=== PATIENT | male | born 1945 | race Caucasian/White ===

== ENCOUNTER 2020-02-21 08:06 | Inpatient (IN) | payer MEDICARE, BC ==
[2020-02-21 08:31] VITALS: BMI 24.4
[2020-02-21] MEDS ORDERED: hydrALAZINE 20 MG/ML VIAL SLOW IVP PRN (09:27)
[2020-02-21] MEDS ORDERED: Acetaminophen 325 MG TAB PO PRN (09:27)
[2020-02-21] MEDS ORDERED: Famotidine 20 MG TAB PO SCH (09:45)
[2020-02-21] MEDS ORDERED: Diltiazem 125 MG in Sodium Chloride 0.9% 100 ML IVPB SCH (12:30)
--- NOTE | 2020-02-21 15:17 | HP ---
PRIMARY CARE PHYSICIAN: Dr. Mark Rayo. CHIEF COMPLAINT: Palpitations. HISTORY OF PRESENT ILLNESS: Mr. Guerrero is a pleasant 74-year-old gentleman, who presented to the emergency room complaining of palpitations for the past hour and a half. The patient denies having any chest pain during this time. He denies feeling dizzy or lightheaded. The patient denies any shortness of breath. No nausea. No vomiting. He did state that he had a slight headache as a result. He says this started after he just kind of rolled over on his side. As a result, he went to the emergency room at [facility]. There, he was found to be in atrial fibrillation with rapid ventricular response. He was noted to have a heart rate of approximately 120. He was placed on a Cardizem drip and then transferred to our facility for further evaluation. When asked if anything like this has ever happened to him before, he said it did about 35 years ago. At that time, the palpitations lasted for about an hour, but by the time he reached the emergency room, it had gone away. He has never seen a cutter tender and never had a cardiac workup in the past and his only other symptom is he did have cold-like symptoms for approximately 5 weeks, but this has since resolved. The patient denies any leg pain or leg swelling. He says that he is fairly active and can walk up to 2 miles without any kind of difficulty. REVIEW OF SYSTEMS: All systems were reviewed and are negative except for that mentioned in the history of present illness. PAST MEDICAL HISTORY: Significant for hypertension, however, he says that he has been off medications for several years. He was told that his blood pressure had normalized in the last 7 years, history of intracranial hemorrhage as well as a polyp was removed. PAST SURGICAL HISTORY: He has had an inguinal hernia repair and a right knee surgery. SOCIAL HISTORY: He is . He has 3 children, 2 living. He is a nonsmoker and nondrinker. His daughter, Shelli, who is an RN here at the hospital would be his surrogate decision maker. He would like to be a full code. FAMILY HISTORY: Significant for father, who had colon cancer; and a mother, who had heart disease. ALLERGIES: NO KNOWN DRUG ALLERGIES. CURRENT MEDICATIONS: He is not on any prescription medications. He takes a dietary supplement as well as , multivitamins, vitamin D, aspirin 81 mg a day, and Citrucel. PHYSICAL EXAMINATION: GENERAL: He is alert and oriented. He appears to be in no acute distress. He is well developed and well nourished. VITAL SIGNS: Blood pressure 138/64, heart rate 94, respiratory rate of 16. His heart rate was ranging at 120 on admission, currently it is around in the high 80s. HEENT: Pupils are equal, round, and reactive. Extraocular muscles are intact. His sclerae are anicteric. Throat; no erythema, no exudates. NECK: No adenopathy. No bruits. LUNGS: Clear to auscultation. There is no wheezing, no rales, no rhonchi. CARDIOVASCULAR: His heart rate . He does not have any murmurs. There are no clicks, no rubs. ABDOMEN: Soft. It is nontender, nondistended. Positive for bowel sounds. No rebound. No guarding. EXTREMITIES: There is no clubbing or cyanosis. No edema. No calf tenderness. No joint effusions. NEUROLOGIC: Cranial nerves 2 through 12 are intact. His muscle strength is 5/5 in both his upper and lower extremities. SKIN AND INTEGUMENT: No skin changes. No rash. LABORATORY AND DIAGNOSTIC DATA: Lab results; he had lab work done at the ER at the other hospital, in which the sodium was 146, potassium 4.7, chloride 107, CO2 is 27, BUN of 9, creatinine 0.7, glucose is 122. White blood cell count 9.1, hemoglobin 16.3, hematocrit is 47.4, and platelet count is 214. He had a chest x-ray, which did not show any infiltrates or effusions. An EKG demonstrated atrial fibrillation with a heart rate of 128. ASSESSMENT AND PLAN: This is a very pleasant 74-year-old gentleman, who presents to the emergency room with atrial fibrillation and rapid ventricular response. His RENAE-VASc score would be between 1 and 2 depending on whether or not he actually has hypertension or not. He says that he does not and was told by his primary care physician that he does not. For this reason, we will go ahead and place him on a full-dose aspirin until he can be seen by Cardiology. We will continue the Cardizem drip, order an echocardiogram, and trend his troponins. Continue to monitor his blood pressure, and further recommendations to follow. Job ID: [id number]
[2020-02-21] MEDS: Carvedilol 3.125 MG TAB PO SCH (17:43)
[2020-02-21] MEDS: Famotidine 20 MG TAB PO SCH (20:10)
--- NOTE | 2020-02-21 23:45 | CON ---
DATE OF CONSULTATION: PRIMARY CARE DOCTOR: Dr. Rayo. PRIMARY GI DOCTOR: Vincent Coyle MD PRIMARY EDUCATION MANAGERS: Rosalva Bateman MD REASON FOR CARDIOLOGY CONSULTATION: New onset atrial fibrillation with RVR. HISTORY OF PRESENT ILLNESS: Mr. Guerrero is a very pleasant 74-year-old male with significant history of small cavernous malformation about 10 years ago, bilateral inguinal hernia repair, and colonoscopy every 2 to 3 years for high risk of colon cancer. He exercise every day. He has not had any cardiac workup prior to this admission. This morning, around 2 o'clock, when after the patient waking up to go to bathroom, he noticed that he had a fluttering in his chest and also checking his pulses when he turned to the left side. He waited for 1 hour and rechecked the patient's pulses, which the patient feel irregularly. Due to that reason, the patient presented to the Emergency Department at [facility]. The patient was found to be in atrial fibrillation with rapid ventricular response. was started at that time and the patient was transferred to [place], [place] for further evaluation and treatment. The patient was doing later very well. However, the patient recalled the patient had 1 similar episode about 35 years ago. At that time, when the patient arrived to the Emergency Department, the patient's heart rate going back to normal rhythm. Since then, he has not have any palpitation, fluttering, dizziness, lightheadedness, chest pain, or any other cardiac complaints. The patient had a congestion for 5 weeks. He was on DayQuil and NyQuil for almost five weeks, he stopped 2 days ago. The patient denied any shortness of breath, chest tightness, dizziness, or any other complaints during the episodes. PAST MEDICAL HISTORY: The patient's medical history, small cavernous malformation in 2011. The patient had a history of hypertension, but the patient's blood pressure medication was stopped around 7 years ago. The patient have a colonoscopy every 2 to 3 years due to high risk of colon cancer. PAST SURGICAL HISTORY: 1. Bilateral inguinal hernia repair. 2. Right knee cyst removed. 3. Colonoscopy every 2 to 3 years due to high risk of colon cancer. FAMILY HISTORY: The patient's family history is the patient's father had a history of colon cancer. The patient's mother, who has heart disease. SOCIAL HISTORY: He is . He has 3 children, whom two are living. He denied EtOH, tobacco, or illicit drug abuse. He exercises almost every day. He used to run until 10 years ago, now he walk 2 miles a day without any cardiac complaints. ALLERGIES: NO KNOWN DRUG ALLERGIES. MEDICATIONS: 1. . 2. Multivitamin. 3. NyQuil. 4. DayQuil. 5. Aspirin 81 mg once a day. 6. Vitamin D. 7. Fiber. REVIEW OF SYSTEMS: A 12-point review of systems are negative unless otherwise mentioned in HPI. PHYSICAL EXAMINATION: VITAL SIGNS: Blood pressure 123/65, temperature 98.0, pulse is 70s to 100 and atrial fibrillation with Cardizem drip, O2 saturation 96% on room air, and respiratory rate is 18. GENERAL: The patient is alert and oriented x4, not in acute distress. HEENT: Head, normocephalic and atraumatic. Eyes, extraocular muscle movement intact. ENT and mouth, oral and nasal mucosa moist without lesion. NECK: Supple. Normal range of motion. No JVD. Carotid pulses are present without bruits or thrill. RESPIRATORY: Clear to auscultate bilaterally. No wheezing, rales, or rhonchi noted. CARDIOVASCULAR: Regular rate and rhythm. Normal S1 and S2. No S3 or S4. No significant murmur, hives, or thrill noted. 2+ pulses in bilateral upper and lower extremities. No edema in the lower extremities. ABDOMEN: Soft and nontender. No masses. Positive bowel sounds are present. MUSCULOSKELETAL: The patient able to move all extremities. The patient denied claudication. SKIN: Warm and dry. No lesion, rash, or erythema noted, but the patient had a bruise in bilateral hands and arms due to thin skin and he is on baby aspirin. NEUROLOGIC: The patient is alert and oriented x4. Nonfocal. PSYCHIATRIC: The patient's mood is appropriate. LABORATORY DATA: WBC 6.5, hemoglobin 14.9, hematocrit 44.3, and platelet 182. Sodium 142, potassium 4.0, BUN 9, creatinine 0.86, glucose 100, AST 15, and ALT 12. TSH 2.0874. Vitamin D is 36.8. Echocardiogram was done today with EF more than 60% to 65%, mild to moderate dilated left atrium, mild mitral valve regurgitation, and mild tricuspid valve regurgitation. ASSESSMENT AND PLAN: 1. New onset atrial fibrillation and rapid ventricular response. The patient's heart rates are well controlled. Carvedilol 3.125 mg twice a day is going to be started from today. Since the patient's [id number] score is 1, which is age, the patient's risk of stroke from atrial fibrillation is very low. If the patient is not going to convert back to normal rhythm by Sunday, possibly the patient is going to undergo cardioversion by Dr. Bateman on Sunday due to the low CHADS-VASc score is 1 and also the patient has a history of hemorrhage in the brain about 2011 when the patient was told by Dr. Velez, the patient should be very careful starting any anticoagulation. The patient is going to be on aspirin 81 mg once a day and Lovenox 40 mg once a day at this moment. 2. History of hypertension. The patient has not been on the blood pressure medication for more than seven years. The patient's blood pressure is stable. At this moment with current medication, we would like to continue to monitor. Thank you very much for Cardiology Service to participate in the care of this patient. We will follow along the patient's care team and make further recommendations as appropriate. Job ID: [id number]
[2020-02-22 03:14] LABS: #Basophils 0.1 thou/uL (0.0-0.2); #Eosinphils 0.1 thou/uL (0.0-0.7); #Lymphocytes 1.8 thou/uL (1.20-3.40); #Monocytes 0.7 thou/uL (0.11-0.59); #Neutrophils 7.5 thou/uL (1.40-6.50); %Basophils 0.6 % (0.0-1.0); %Eosinophils 0.8 % (0.0-10.0); %Lymphocytes 17.9 % (21.0-51.0); %Monocytes 6.7 % (0.0-10.0); %Neutrophils 73.8 % (42.0-75.0); Hemoglobin 15.7 g/dL (14.0-18.0); Mean Corpuscular HGB CONC 33.7 g/dL (32.0-36.0); Mean Corpuscular Hemoglobin 31.8 pg (27.0-31.0); Mean Corpuscular Volume 94.2 fL (78.0-98.0); Mean Platelet Volume 8.5 fL (7.4-10.4); Platelet Count 204 thou/uL (130-400); RBC Distribution Width 13.5 % (11.5-14.5); Red Blood Cell (RBC) Count 4.94 mill/uL (4.70-6.10); White Blood Cell (WBC) Count 10.1 thou/uL (4.8-10.8)
[2020-02-22 03:40] LABS: Anion Gap 12 mmol/L (10-20); BUN (Urea Nitrogen) 12 mg/dL (8.4-25.7); Calc. Creatinine Clearance 73 mL/min (70-130); Calcium 8.6 mg/dL (7.8-10.44); Carbon Dioxide 24 mmol/L (23-31); Chloride 106 mmol/L (98-107); Estimated GFR-MDRD 84; Glucose 105 mg/dL (83-110); Magnesium 2.1 mg/dL (1.6-2.6); Potassium 3.8 mmol/L (3.5-5.1); Sodium 138 mmol/L (136-145)
--- NOTE | 2020-02-22 06:34 | CON ---
DATE OF CONSULTATION: 02/21/2020 ADDENDUM: INDICATION FOR CONSULTATION: This is a 74-year-old gentleman with new onset atrial fibrillation, possibly uncertain exactly on the onset of this atrial fibrillation. He presented to the emergency room, where he notes some palpitations and had no significant chest pain or shortness of breath. He was found to be in atrial fibrillation with rapid ventricular response. He said he may have had a similar episode many, many years ago, but had none since that time. He runs on a routine basis, but more walking in last couple of years, but does walk on a routine basis. He has no other significant risk factors. He has no hypertension, diabetes, or hypercholesterolemia. No smoking history. At this time, he remains stable. He denies any chest pain. EKG is unremarkable except for the atrial fibrillation. The cardiac enzymes are not yet available. His other laboratory data are within normal limits. His LDL is 93. At this time, he appears to be very comfortable and still has atrial fibrillation. He has been started on medications in the form of diltiazem. 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 This has been stable. He has had no further bleeding episodes, this was several years ago, but at this time, his CHADS-Vasc score is about 1 just to his age. He has no other significant risk factors. We would continue the aspirin. Would give him a low dose of Lovenox for deep venous thrombosis prophylaxis. His echocardiogram showed a normal ejection fraction with normal valvular structures. At this time, we will control the heart rate. He may need to be on anticoagulation about a month and he can undergo electrical cardioversion of the atrial fibrillation or we may try to convert chemically. We could certainly entertain the idea of an early ASHLIE and if there is no evidence of thrombus then proceed with early cardioversion of this gentleman back to sinus rhythm. He also at some point in time, will need to undergo stress testing to rule out evidence for underlying coronary artery disease as the possible etiology of the atrial fibrillation. PAST MEDICAL HISTORY: Please refer the notes dictated by the nurse practitioner. SOCIAL HISTORY: Please refer the notes dictated by the nurse practitioner. FAMILY HISTORY: Please refer the notes dictated by the nurse practitioner. REVIEW OF SYSTEMS: Please refer the notes dictated by the nurse practitioner. ALLERGIES: PLEASE REFER THE NOTES DICTATED BY THE NURSE PRACTITIONER. MEDICATIONS: Please refer the notes dictated by the nurse practitioner. PHYSICAL EXAMINATION: GENERAL: Reveals a very pleasant, well-developed, well-nourished gentleman, who is in no acute distress. VITAL SIGNS: His blood pressure is 122/68, heart rate is in the 70s to 80s and it is better controlled now with atrial fibrillation but still persistent atrial fibrillation. Respiratory rate is 18 and O2 saturation 96%. He is afebrile. HEENT: Unremarkable. CHEST: Clear to auscultation without rales, rhonchi, or wheezing. CARDIOVASCULAR: Reveals an irregularly irregular rhythm. There were no gross murmurs, heaves, thrills, bruits, or rubs. ABDOMEN: Soft and nontender. Positive bowel sounds are present. EXTREMITIES: Show no clubbing, cyanosis, or edema. Pedal pulses are present. NEUROLOGIC: The patient appears to be fully intact. LABORATORY DATA: EKG as noted above. There is no evidence of ischemia. PLAN: At this time, we will continue the medications and he may convert himself with medications. If not, then we will continue oral anticoagulation with aspirin and low-dose Lovenox and will certainly give consideration tomorrow whether or not he can undergo an early cardioversion of the atrial fibrillation back to sinus rhythm. Since his CHADS-VASc score is extremely low, he may be a candidate actually just to proceed with cardioversion if he does not convert back to sinus rhythm. Job ID: [id number] [facility] CENTERPatric
[2020-02-22] MEDS: Famotidine 20 MG TAB PO SCH (08:50)
[2020-02-22] MEDS: Carvedilol 3.125 MG TAB PO SCH (08:50)
[2020-02-22] MEDS ORDERED: Aspirin 325 mg Enteric Coated Tablet PO SCH (09:00)
[2020-02-22] MEDS ORDERED: Enoxaparin Sodium 40 MG/0.4 ML SYRINGE SC SCH (09:00)
[2020-02-22] MEDS ORDERED: Multivit, Therapeutic 1 TAB PO SCH (09:00)
[2020-02-22] MEDS ORDERED: Aspirin 81 mg Enteric Coated Tablet PO SCH (09:00)
[2020-02-22 11:31] VITALS: BP 156/78; TEMP 97.6
--- NOTE | 2020-02-22 12:48 | PDOC.HOSPP ---
- Subjective Encounter Date: 02/22/20 Encounter Time: 12:46 Subjective: Mr. Guerrero was seen today in follow-up of AFIB with RVR. He does not have any complaints. - Objective Vital Signs & Weight: Vital Signs (12 hours) Temp Pulse Resp BP Pulse Ox 02/22/20 11:30 97.6 F 63 16 156/78 H 98 02/22/20 08:41 97.7 F 67 16 136/66 99 02/22/20 04:00 98.0 F 57 L 18 118/55 L 99 Weight Weight 151 lb 6.4 oz I&O: 02/21/20 02/22/20 02/23/20 06:59 06:59 06:59 Intake Total 1645 Output Total 1600 Balance 45 Result Diagrams: 02/22/20 03:07 02/22/20 03:07 Hospitalist ROS - Medication Medications: Active Medications Generic Name Dose Route Start Last Admin Trade Name Freq PRN Reason Stop Dose Admin Aspirin 81 mg 02/22/20 09:00 02/22/20 08:50 Ecotrin PO 81 mg DAILY BARNEY Administration Carvedilol 3.125 mg 02/21/20 17:00 02/22/20 08:50 Coreg PO 3.125 mg BID-WM BARNEY Administration Cholecalciferol 1,000 units 02/22/20 09:00 02/22/20 08:50 Vitamin D3 PO 1,000 units DAILY BARNEY Administration Enoxaparin Sodium 40 mg 02/22/20 09:00 02/22/20 08:50 Lovenox SC 40 mg 0900 BARNEY Administration Famotidine 20 mg 02/21/20 21:00 02/22/20 08:50 Pepcid PO 20 mg BID BARNEY Administration Diltiazem HCl 125 mg/ Sodium 125 mls @ 7.5 mls/hr 02/21/20 12:30 02/21/20 15: 06 Chloride IVPB 125 mls INF BARNEY Administration Protocol Multivitamins 1 tab 02/22/20 09:00 02/22/20 08:50 Theragran PO 1 tab DAILY BARNEY Administration Sodium Chloride 10 ml 02/21/20 21:00 02/22/20 08:51 Flush - Normal Saline IVF 10 ml Q12HR BARNEY Administration - Exam Eye: PERRL, anicteric sclera Heart: RRR, no murmur, no gallops, no rubs, normal peripheral pulses Respiratory: CTAB, no wheezes, no rales, no ronchi, normal chest expansion, no tachypnea Gastrointestinal: soft, non-tender, non-distended, normal bowel sounds, no palpable masses, no hepatomegaly Extremities: no cyanosis, no clubbing, no edema Hosp A/P (1) Atrial fibrillation Code(s): I48.91 - UNSPECIFIED ATRIAL FIBRILLATION Status: Acute - Plan * AFIB with rvr- he has converted to sinus * Echo results noted * He has been cleared for discharge by Cardiology
--- NOTE | 2020-02-22 14:20 | PDOC.CPN ---
- Subjective Date: 02/22/20 Time: 14:22 Interval history: The pt seen and examined. No overnight events. No cardiac complaints. - Objective Allergies/Adverse Reactions: Allergies Allergy/AdvReac Type Severity Reaction Status Date / Time No Known Allergies Allergy Verified 02/21/20 09:55 Visit Medications: Current Medications Acetaminophen (Tylenol) 650 mg PO Q4H PRN PRN Reason: Headache/Fever/Mild Pain (1-3) Aspirin (Ecotrin) 81 mg PO DAILY [facility] Last Admin: 02/22/20 08:50 Dose: 81 mg Carvedilol (Coreg) 3.125 mg PO BID-[facility] Last Admin: 02/22/20 08:50 Dose: 3.125 mg Cholecalciferol (Vitamin D3) 1,000 units PO DAILY [facility] Last Admin: 02/22/20 08:50 Dose: 1,000 units Enoxaparin Sodium (Lovenox) 40 mg SC 0900 [facility] Last Admin: 02/22/20 08:50 Dose: 40 mg Famotidine (Pepcid) 20 mg PO BID [facility] Last Admin: 02/22/20 08:50 Dose: 20 mg Hydralazine HCl (Apresoline) 10 mg SLOW IVP Q4H PRN PRN Reason: SBP > 180 and HR < 70 Diltiazem HCl 125 mg/ Sodium (Chloride) 125 mls @ 7.5 mls/hr IVPB INF [facility]; Protocol Last Admin: 02/21/20 15:06 Dose: 125 mls Multivitamins (Theragran) 1 tab PO DAILY [facility] Last Admin: 02/22/20 08:50 Dose: 1 tab Sodium Chloride (Flush - Normal Saline) 10 ml IVF Q12HR [facility] Last Admin: 02/22/20 08:51 Dose: 10 ml Sodium Chloride (Flush - Normal Saline) 10 ml IVF PRN PRN PRN Reason: Saline Flush Vital Signs & Weight: Vital Signs Temp Pulse Resp BP Pulse Ox 02/22/20 11:30 97.6 F 63 16 156/78 H 98 02/22/20 08:41 97.7 F 67 16 136/66 99 02/22/20 04:00 98.0 F 57 L 18 118/55 L 99 Weight 151 lb 6.4 oz - Physical Exam General: alert & oriented x3 HEENT: mucus membranes moist Neck: supple neck Cardiac: regular rate and rhythm, S1/S2 Lungs: clear to auscultation - Labs Result Diagrams: 02/22/20 03:07 02/22/20 03:07 - Telemetry Sinus rhythms and dysrhythmias: sinus rhythm - Assessment/Plan Assessment/Plan: 1. Parox Afib with RVR - was on Diltiazem when he converted back to SR around 1999 on 02/21/2020; On Coreg 3.125mg BID and ASA 81mg qd ([id number] Score is 1 for age) 2. hx of small cavernous malformation in 2011 - the pt must by very caution about OAC due to this dx by Dr Agustin RAYA reviewed * Echo on 02/21/2020 with EF > 60-65%, mild-mod LAE, mild MR and TR * From Cardiac standpoint, the pt is stable to d/c home with 3 wks EVR (which will be mailed to the pt) * The pt will f/u with Dr Bateman' office in 3-4 wks.
--- NOTE | 2020-02-23 00:55 | DIS ---
DATE OF ADMISSION: 02/21/2020 DATE OF DISCHARGE: 02/22/2020 DISCHARGE DISPOSITION: Home. DISCHARGE DIAGNOSIS: Atrial fibrillation. MEDICATIONS: Include: 1. Aspirin 81 mg daily. 2. Coreg 3.125 mg twice daily. 3. Multivitamin for adults once daily. 4. Vitamin D3, 1000 units p.o. daily. 5. Citrucel 500 mg p.o. daily. IMAGING: None during the hospital stay. The patient had an echocardiogram in which the ejection fraction was estimated at 60% to 65%. The left atrium was [id number] dilated, and there is normal right and left ventricular function and size. CODE STATUS: Full code. ALLERGIES: NO KNOWN DRUG ALLERGIES. HOSPITAL COURSE: Mr. Guerrero is a pleasant 74-year-old gentleman, who presented to the emergency room after having palpitations. This lasted for over an hour and a half and was concerning. For this reason, he came to the ER and was found to be in atrial fibrillation with rapid ventricular response. He was originally evaluated at the [facility] Emergency Room in the [place] and then transferred to our facility. His daughter is a nurse, who works here. He was evaluated by Cardiology and had initially been placed on a Cardizem drip and after being on the drip for about 12 to 18 hours, he spontaneously converted back to sinus rhythm. His CHADS-VASc Score was just 1 based on his age, as he denies any history of hypertension and as such, he will be placed on aspirin alone and he will have close outpatient followup with his primary care physician as well as with Dr. Bateman as instructed. Job ID: [id number]
--- NOTE | 2020-02-23 17:11 | EKG ---
Test Reason : STAT Blood Pressure : / mmHG Vent. Rate : 049 BPM Atrial Rate : 049 BPM P-R Int : 158 ms QRS Dur : 086 ms QT Int : 494 ms P-R-T Axes : 054 043 090 degrees QTc Int : 446 ms Marked sinus bradycardia Nonspecific T wave abnormality Abnormal ECG Confirmed by DR. Edwin REBOLLAR (3) on 02/23/2020 5:10:44 PM Referred By: JD Confirmed By:DR. Edwin REBOLLAR
--- NOTE | 2020-02-24 07:17 | PQF ---
EMILEE KELLEY TONI MD [id number] [facility]-294 [id number] CLINICAL DOCUMENTATION CLARIFICATION FORM: POST DISCHARGE Addendum to original discharge summary date: ____ Late entry note date: __ DATE:02/24/2020 ATTN: Shemar Littlejohn Please exercise your independent, professional judgment in responding to the clarification form. Clinical indicators are provided on the bottom of this form for your review Please check appropriate box(s) to clarify if the following diagnosis has been ruled in or ruled out: Small Cavernous malformation [ X] Ruled in diagnosis [ X ] Continue to treat [ ] Resolved [ ] Ruled out diagnosis [ ] Cannot rule out diagnosis [ ] Other diagnosis For continuity of documentation, please document condition throughout progress notes and discharge summary. Thank You. 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 All Rights Reserved [email or web address]
== END 2020-02-22 15:12 | disposition home or self-care (01) | DRG 308 ==
LOC: 2NO 08:06
PROVIDERS: ADMIT Internal Medicine; ATTEND Internal Medicine
DX: I48.0 Paroxysmal atrial fibrillation (principal); Q28.2 Arteriovenous malformation of cerebral vessels; I10 Essential (primary) hypertension; Z86.010 Personal history of colon polyps
CPT/HCPCS: 36415; 83735; 84443; 85025; 93005; 93010; 93306; J1650; J3490

== ENCOUNTER 2020-03-05 02:39 | Inpatient (IN) | payer MEDICARE, BC ==
[2020-03-05] MEDS ORDERED: Diltiazem 125 MG/25 ML ONE (03:02)
[2020-03-05 03:30] LABS: ALT (SGPT) 26 U/L (8-55); AST (SGOT) 19 U/L (5-34); Albumin 4.3 g/dL (3.4-4.8); Alkaline Phosphatase 84 U/L (40-110); Anion Gap 16 mmol/L (10-20); BUN (Urea Nitrogen) 15 mg/dL (8.4-25.7); Bilirubin, Total 0.4 mg/dL (0.2-1.2); Calc. Creatinine Clearance 0 mL/min (70-130); Calcium 9.3 mg/dL (7.8-10.44); Carbon Dioxide 22 mmol/L (23-31); Chloride 108 mmol/L (98-107); Estimated GFR-MDRD 73; Globulin 3.4 g/dL (2.4-3.5); Glucose 146 mg/dL (83-110); Potassium 3.7 mmol/L (3.5-5.1); Protein, Total 7.7 g/dL (5.8-8.1); Sodium 142 mmol/L (136-145)
[2020-03-05 03:56] LABS: #Eosinphils 0.1 thou/uL (0.0-0.7); #Lymphocytes 1.8 thou/uL (1.20-3.40); #Monocytes 0.7 thou/uL (0.11-0.59); %Basophils 0.4 % (0.0-1.0); %Eosinophils 1.2 % (0.0-10.0); %Lymphocytes 16.7 % (21.0-51.0); %Monocytes 6.6 % (0.0-10.0); %Neutrophils 75.1 % (42.0-75.0); Hemoglobin 16.8 g/dL (14.0-18.0); Mean Corpuscular Hemoglobin 31.5 pg (27.0-31.0); Mean Corpuscular Volume 92.8 fL (78.0-98.0); Mean Platelet Volume 8.5 fL (7.4-10.4); Platelet Count 199 thou/uL (130-400); RBC Distribution Width 13.4 % (11.5-14.5); Red Blood Cell (RBC) Count 5.33 mill/uL (4.70-6.10); White Blood Cell (WBC) Count 10.6 thou/uL (4.8-10.8)
[2020-03-05] MEDS ORDERED: Acetaminophen 650 MG Suppository PR PRN (04:16)
[2020-03-05] MEDS ORDERED: Acetaminophen 325 MG TAB PO PRN (04:16)
--- NOTE | 2020-03-05 04:35 | PDOC.EVN ---
Event Note - Event Note Event Note: Dictation Code: [id number]
[2020-03-05 04:57] LABS: Lactic Acid 1.8 mmol/L (0.5-2.2)
--- NOTE | 2020-03-05 05:13 | HP ---
TIME OF ASSESSMENT: 0400 hours. CHIEF COMPLAINT: Palpitations. HISTORY OF PRESENT ILLNESS: Mr. Guerrero is a pleasant 74-year-old gentleman with a known history of hypertension in the past, who was recently diagnosed with atrial fibrillation after presenting with palpitations on February 22, 2020. The patient remained in the hospital overnight and was discharged on Coreg 3.125 mg b.i.d., which he has been taking consistently. The patient states he has felt well in himself in recent days and without any complaints. He suddenly felt palpitations at approximately 1:00 a.m. this morning. The patient states it persisted and denies any associated chest pain, nausea, or vomiting. No abdominal pain. Has not had any recent issues with his appetite and denies urinary symptoms. Overall, he feels well. The patient states he had been discharged on heart monitor, which he has had connected until arriving to the ER today. During his recent hospitalization, he was seen by Dr. Bateman and was scheduled to follow up with her as an outpatient. In the emergency department, he was initially noted to have an elevated heart rate in the 130s. He was given a bolus of Cardizem 50 mg and then started on a Cardizem drip of 5 mg/hour. According to Dr. Bird, his heart rate improved to the 80s. He is being admitted for further observation and management. PAST MEDICAL HISTORY: 1. History of hypertension, however, has been off medications for several years. He was told his blood pressure improved. 2. History of intracranial hemorrhage. 3. Atrial fibrillation. PAST SURGICAL HISTORY: 1. Inguinal hernia repair. 2. Right knee surgery. SOCIAL HISTORY: The patient lives alone. He is fully independent. Denies any tobacco use, alcohol consumption, or illicit drug use. FAMILY HISTORY: His father was diagnosed with colon cancer and his mother had heart disease. ALLERGIES: NO KNOWN DRUG ALLERGIES. CURRENT MEDICATIONS: 1. Aspirin. 2. Coreg. PHYSICAL EXAMINATION: GENERAL: The patient appears well developed, well nourished, in no acute distress. He is resting comfortably. VITAL SIGNS: Temperature 98, pulse 89, respirations 17, O2 saturation 100% on room air, blood pressure 121/63. HEENT: Normocephalic and atraumatic. Pupils are equal, round, and reactive to light. Sclerae without icterus. Oropharynx is clear. NECK: Supple. No lymphadenopathy. LUNGS: Clear to auscultation bilaterally without any wheezes, rales, or rhonchi. CARDIAC: Regular rhythm. ABDOMEN: Soft, nontender, nondistended with bowel sounds present. No guarding or rigidity. No renal angle tenderness. EXTREMITIES: No lower leg swelling or edema. NEUROLOGIC: Alert and oriented x3. SKIN: Warm and dry. LABORATORY DATA: White blood count 12.6, hemoglobin 16.9, hematocrit 49.5, platelets 199. Sodium 142, potassium 3.7, BUN 15, creatinine 1, GFR 73, glucose 146. LFTs unremarkable. Troponin negative. BNP 65.6. IMAGING DATA: Baseline chest x-ray obtained, which showed no acute changes as per ED physician. IMPRESSION AND PLAN: Mr. Guerrero is a very pleasant 74-year-old gentleman, who presented with palpitations, known to have a recent diagnosis of atrial fibrillation, admitted at the end of January and started on Coreg. The patient has had a heart monitor placed. He presents with current palpitations and noted to be in atrial fibrillation with rapid ventricular response. This has improved following bolus of Cardizem and after being placed on Cardizem 5 mg/hour. The patient will be admitted to telemetry for continued cardiac monitoring. We will continue to trend troponins. We will obtain the UA to rule out possibility of underlying urine infection. The patient with a normal chest x-ray. He is asymptomatic at present. 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 1. Gastrointestinal prophylaxis with famotidine. 2. Deep venous thrombosis prophylaxis. The patient is ambulatory. 3. Code status, full. Surrogate decision maker is his daughter Rashiad Sanchez. Case was discussed with attending who agrees with plan of care as described above. Job ID: [id number]
[2020-03-05] MEDS: Sodium Chloride 0.9% 1,000 ML IV SCH ×2 (05:50→22:04)
[2020-03-05 06:33] VITALS: BMI 24.8
[2020-03-05 06:37] LABS: Troponin I 0.015 ng/mL (< 0.028)
[2020-03-05 07:24] LABS: Bilirubin Negative (Negative); Blood, Urine Negative (Negative); Glucose, Urine (Dipstick) Negative (Negative); Leukocyte Negative (Negative); Nitrite Negative (Negative); Protein, Urine (Dipstick) Negative (Neg-Trace); Urobilinogen 0.2 mg/dL (Less than 2)
[2020-03-05 07:36] LABS: Clarity Clear (Clear); RBC/HPF 0-3 HPF (0-3); Squamous Epithelial 0-3 HPF (0-3); Urine Culture Reflex No No; WBC/HPF 0-3 HPF (0-3)
[2020-03-05 07:37] LABS: Bacteria/HPF None Seen HPF (None Seen)
--- NOTE | 2020-03-05 08:02 | RAD ---
RADIOGRAPH CHEST 1 VIEW: DATE: 03/05/2020 HISTORY: 74-year-old male with palpitations and atrial fibrillation FINDINGS: There are no airspace densities, pulmonary edema, pneumothorax, or cardiomegaly. The lateral costophr enic angles are sharp. IMPRESSION: No acute cardiopulmonary findings.
[2020-03-05] MEDS ORDERED: Aspirin 81 mg Enteric Coated Tablet PO SCH (09:00)
[2020-03-05 09:54] LABS: Troponin I 0.018 ng/mL (< 0.028)
--- NOTE | 2020-03-05 13:24 | PDOC.EVN ---
Event Note - Event Note Event Note: Patient was seen and examined this morning. States he is "feeling good". Currently still on the Cardizem gtt at 5mg/hr. Pulse was 80-110 while in the room. Irregular rate and rhythm upon exam, no shortness of breath or chest pain. Awaiting cardiology consult at this time.
--- NOTE | 2020-03-05 13:48 | CON ---
DATE OF CONSULTATION: PRIMARY CARE PHYSICIAN: Dr. Rayo. PRIMARY SPEECH TEACHER: Dr. Rosalva Bateman. WATER TREATMENT PLANT SUPERVISOR: Dr. Vincent Coyle. REASON FOR CARDIOLOGY CONSULTATION: Recurrent atrial fibrillation and new onset of atrial flutter with rapid ventricular response. HISTORY OF PRESENT ILLNESS: Mr. Guerrero is a very pleasant 74-year-old male with a significant history of new-onset atrial fibrillation with rapid ventricular response in January 2020, also small cavernous malformation about 10 years ago, bilateral inguinal hernia repair, and colonoscopy every 2 to 3 years for high risk of colon cancer. He was in the hospital on February 20 to due to new onset of atrial fibrillation with rapid ventricular response. The patient converted back to sinus rhythm with diltiazem drip and carvedilol 3.125 mg twice a day. The patient has been wearing a heart monitor, which shows atrial flutter with rapid ventricular response with heart rate going up to 170. Also, early this morning, when he woke up, he noticed he has a palpitation, fluttering in his chest. He denies any shortness of breath, dizziness, lightheadedness, or any other cardiac complaints during the episode. However, due to the symptom which was so similar to the last time the patient was in the hospital for atrial fibrillation with rapid ventricular response in January 2020, the patient decided to present to the emergency department for further evaluation and treatment. In the ER, the patient was found to have heart rate of 130 to 140s. The diltiazem drip was started. The patient was given a bolus of Cardizem 15 mg and Cardizem drip of 5 mg/hour is started. At this moment, the patient denied any cardiac complaints. The patient had an echocardiogram done on February 21, 2020, with EF more than 60% to 65%, [id number] LAE, mild mitral valve regurgitation, and mild tricuspid regurgitation. PAST MEDICAL HISTORY: 1. Small cavernous malformation in 2011. 2. The patient has a medical history of hypertension, however, the patient's blood pressure medication was stopped about 7 years ago. He is on carvedilol 3.125 mg twice a day due to atrial fibrillation. 3. New-onset atrial fibrillation with rapid ventricular response on February 21, 2020. 4. High risk of colon cancer. The patient has a colonoscopy every [address] Coyle. PAST SURGICAL HISTORY: 1. Bilateral inguinal hernia repair. 2. Right knee cyst removed. 3. Colonoscopy every 2 to 3 years due to high risk of colon cancer. FAMILY HISTORY: There is a significant family history of colon cancer in his paternal side. The patient's mother had a medical history of heart disease. SOCIAL HISTORY: He is . He has 3 children, whom 2 are living well. He denies EtOH, tobacco, or illicit drug abuse. He exercises almost every day with walking. He stated he walked yesterday without any cardiac complaints. ALLERGIES: HE HAS NO KNOWN DRUG ALLERGIES. MEDICATIONS: 1. Multivitamin 1 tablet once a day. 2. once a day. 3. Vitamin D3 of 1000 units once a day. 4. Aspirin 81 mg once a day. 5. Carvedilol 3.125 mg once a day. 6. once a day. REVIEW OF SYSTEMS: 12-point review of systems negative unless otherwise mentioned in HPI. PHYSICAL EXAMINATION: VITAL SIGNS: Blood pressure 116/72, temperature 97.7, pulse 85, respiratory rate 16, and O2 saturation 97% on room air. GENERAL: The patient is alert and oriented x4, not in acute distress. HEAD: Normocephalic, atraumatic. EYES: Extraocular muscle movements intact. He uses reading glasses. NECK: Supple. Normal range of motion. No JVD. RESPIRATORY: Clear to auscultate bilaterally. No wheezing, rales, or rhonchi noted. CARDIOVASCULAR: Irregularly irregular. No S3 or S4. No significant murmur, hives, or thrill noted. 2+ pulses in bilateral upper and lower extremities. No edema in the lower extremities. ABDOMEN: Soft, nontender. No mass to palpitate. Bowel sounds are present. SKIN: Warm and dry. No lesion, rash, or erythema noted. MUSCULOSKELETAL: The patient able to move all extremities without difficulty. The patient denied claudication. NEUROLOGIC: The patient is alert and oriented x4. Nonfocal. PSYCHIATRIC: The patient's mood is appropriate. LABORATORY DATA: WBC 10.6, hemoglobin 16.8, hematocrit 49.5, and platelets 199. Sodium 143, potassium 3.7, chloride 108, BUN 15, creatinine 1.0, and glucose 146. Lactic acid 1.8. Calcium 9.3, magnesium 2.2, AST 19, and ALT 26. Troponin is 0.011, 0.015. The patient's TSH at last admission was 2.0874. BNP is 65.6. ASSESSMENT AND PLAN: 1. New-onset atrial flutter with rapid ventricular response. The patient was discharged from last hospitalization with heart monitor, which shows atrial fibrillation with rapid ventricular response with heart rate going up to 170. The patient is on telemetry. At this moment, the patient has questionable atrial flutter and atrial fibrillation with heart rate 80 to 100. The patient is asymptomatic at this moment. EP consult is going to be ordered for history of atrial flutter with rapid ventricular response. 2. Recurrent atrial fibrillation with rapid ventricular response. The patient's heart rate is stable with Cardizem drip 5 mg/hour. We would like to resume carvedilol for this patient if the patient's vital signs are more stable. He is on aspirin 81 mg once a day due to his CHADS-VASc risk score is 1 which is age. 3. It is possible the patient might need to have medical stress test, however, I would like to discuss with Dr. Bateman for further treatment plan for this patient. 4. History of small cavernous malformation in 2020. At this moment, the patient does not have any residual from the diagnosis. We would like to continue to monitor. We would like to continue on aspirin only at this moment. Thank you very much for Cardiology Service to participate in the care of this patient. We will follow along the patient's care team and make further recommendations as appropriate. Job ID: [id number]
[2020-03-05] MEDS: Dronedarone HCl 400 MG TAB PO SCH (17:19)
--- NOTE | 2020-03-05 18:59 | CON ---
DATE OF CONSULTATION: 03/05/2020 Please refer to the notes dictated by my nurse practitioner. INDICATION FOR CONSULTATION: This is a very pleasant 74-year-old gentleman with a history of atrial fibrillation recently, who converted within hours back to sinus rhythm. He was treated by medical management, was discharged. He was recently in the hospital on the 20 of February. He had been sent home with a monitor and then also he had been placed on diltiazem as well as Coreg 3.125 mg. He was perhaps just taking the Coreg at home and aspirin. He then got up early this morning to go to the restroom, and noticed his heart was beating fast and he presented back to the emergency room. His monitor did show what appears to be atrial fibrillation with a rapid ventricular response and sometimes it almost appeared to be atrial flutter with 2:1 block. However, it does appear to be more of an atrial fibrillation with irregularity. He remains in atrial fibrillation at this time. At times he, however, is still somewhat tachycardic, but most of the time the rate is under better control, now with IV diltiazem. We will ask the elementary esl teacher to see him. He did not have any chest pain and remained stable. There has been no indication that he has any coronary artery disease. His troponin I is negative. His BNP was 65.6. We will ask the elementary esl teacher to visit with the patient for possible medication management or to possible ablation of the atrial fibrillation. PAST MEDICAL HISTORY: Please refer to the notes by the nurse practitioner. SOCIAL HISTORY: Please refer to the notes by the nurse practitioner. FAMILY HISTORY: Please refer to the notes by the nurse practitioner. REVIEW OF SYSTEMS: Please refer to the notes by the nurse practitioner. MEDICATIONS: Please refer to the notes by the nurse practitioner. ALLERGIES: PLEASE REFER TO THE NOTES BY THE NURSE PRACTITIONER. PHYSICAL EXAMINATION: Please refer to the notes by the nurse practitioner. CARDIAC: Also, the patient does still have an irregular regular rhythm. CHEST: Clear to auscultation. EXTREMITIES: There is no lower extremity edema. ABDOMEN: Unremarkable. We have discussed this patient together and I would agree with the assessment and plan. LABORATORY DATA: Also did not show any evidence of myocardial infarction. Otherwise, his blood sugar was elevated at 146 and his CBC was within normal limits and the urinalysis was unremarkable. IMPRESSION: Recurrent atrial fibrillation with rapid ventricular response. We will ask elementary esl teacher to visit with the patient to see whether or not he is a candidate to undergo an ablation of the atrial fibrillation or just continue medical management. We will most likely switch his medicine to something like Multaq to see whether or not he tolerates this. We will also need to consider whether or not to start him on long-term oral anticoagulation more than just an aspirin a day. Thank you very much for allowing us to participate in the care of this very pleasant patient. Job ID: [id number] MTDD
[2020-03-05] MEDS: Apixaban 5 MG TAB PO SCH (20:01)
--- NOTE | 2020-03-05 21:35 | CON ---
DATE OF CONSULTATION: 03/05/2020 HISTORY OF PRESENT ILLNESS: I am seeing Mr. Guerrero at our [facility] telemetry floor as an Electrophysiology multi site leasing consultant. His problems are; 1. Paroxysmal atrial fibrillation. 2. Structurally normal heart by 2D echo on 02/21/2020 reveals LVEF 60% to 65%, mild to moderately enlarged left atrium, mild MR and TR. 3. History of cavernous malformation by MRI and CT angio in 2016 and 2017 without significant hemorrhage. 4. Family history of colon cancer on regular monitoring. ALLERGIES: NONE NOTED. MEDICATIONS: At home included; 1. Multivitamin. 2. Iron. 3. Folic acid. 4. Citrucel. 5. Cholecalciferol. 6. Aspirin. 7. Coreg. 8. Curcumin products. SUBJECTIVE: Mr. Guerrero is here with recurrent palpitations that started this morning. He has had rapid heartbeats and he passed out. No particular chest pain or angina noted. No fever, chills, or cough. He has no stroke-like symptoms. No neurological deficits. Rest of 12-point review of systems otherwise unremarkable. PAST MEDICAL HISTORY: As above. The patient was recently hospitalized in January with similar symptoms. At that point, he converted within a day. Echocardiogram at that time was normal. He had history of headaches and subsequent CT scan and MRI was performed in October and November 2016 with findings of venous cavernous malformation in 2016. CHADS-VASc score of 1 with age, on aspirin therapy only. SOCIAL HISTORY: The patient lives alone, independent, very active, exercises and runs regularly. PAST SURGICAL HISTORY: Significant for inguinal hernia repair, and right knee surgery. FAMILY HISTORY: Significant for colon cancer in mother and heart disease. OBJECTIVE DATA: VITAL SIGNS: Blood pressure is 130/73, heart rate 68, respirations 15, temperature 97.6 degrees Fahrenheit. GENERAL: Alert and oriented man, in no apparent distress. NECK: Supple. Jugular veins not distended. CHEST: Coarse without crackles. HEART: Sounds are irregularly irregular. S1 and S2 are variable. No murmur or gallop. ABDOMEN: Benign. Bowel sounds are positive. EXTREMITIES: Lower extremities without edema clubbing or cyanosis. Pulses are adequate. NEUROLOGIC: The patient is nonfocal. MUSCULOSKELETAL: Without joint swelling or deformities. SKIN: Without rash. DIAGNOSTIC DATA: EKG was reviewed from March 05 at 2:40 a.m., revealed atrial fibrillation, rate of 141 beats per minute, QTc is 471 milliseconds. Subsequent EKG at 3:55 a.m. this morning reveals atrial fibrillation with ventricular rate of 92 beats per minute, QTc 447 milliseconds. Telemetry strips reveal complete atrial fibrillation with ventricular rate. The event monitor strips from 03/05/2020 reveals atrial fibrillation with occasional wide-complex beats at triplet is noted, which could represent PVCs or conducted atrial fibrillation beats with aberration. LABORATORY DATA: Reviewed. White count is 10.6, hemoglobin 16.8, platelet count is 199. Sodium is 142, potassium 3.7, BUN 15, creatinine 1.0. AST and ALT are 19 and 24. ASSESSMENT AND PLAN: Mr. Guerrero is a very pleasant 74-year-old gentleman with history of paroxysmal atrial fibrillation with an admission in January and now repeated admission for palpitations and rapid rates. He has no evidence of structural heart disease except for mild left atrial enlargement and MR and TR on echocardiogram last admit. He is currently reasonably well rate controlled on the continued beta-jorge therapy and IV diltiazem. 1. Regarding the atrial fibrillation, we discussed the mechanism of potential treatment options including cardioversion, antiarrhythmic agents and ablation therapies as well. Short term likely restoring sinus rhythm and suppressing atrial fibrillation with either flecainide or Multaq could be a reasonable option. Should we opt for flecainide, additional beta blocking agents might need to be used for rate control. Monitor for bradycardia. 2. CHADS-VASc score of 1 with age only, off anticoagulants and history of venous cavernoma. Anticoagulation is difficult proposition in this situation, although there are some suggestions that there is no increased incidence of hemorrhage with anticoagulation. Should we offer ablation therapy, this may need to be in anyway considered, long-term consideration for Watchman procedure could be also made. 3. We will discuss these options with Dr. Bateman and I will see this patient back in the office for further management - possibly ablation. Also, hopefully at that point he can speak to Betzaida, his daughter, who is a nurse in our recovery unit. Job ID: [id number] MTDD
[2020-03-06 04:20] LABS: #Eosinphils 0.1 thou/uL (0.0-0.7); #Lymphocytes 1.7 thou/uL (1.20-3.40); #Monocytes 0.7 thou/uL (0.11-0.59); #Neutrophils 7.3 thou/uL (1.40-6.50); %Basophils 0.4 % (0.0-1.0); %Eosinophils 1.5 % (0.0-10.0); %Lymphocytes 16.8 % (21.0-51.0); %Monocytes 7.3 % (0.0-10.0); %Neutrophils 74.1 % (42.0-75.0); Hemoglobin 13.8 g/dL (14.0-18.0); Mean Corpuscular HGB CONC 33.6 g/dL (32.0-36.0); Mean Corpuscular Hemoglobin 31.4 pg (27.0-31.0); Mean Corpuscular Volume 93.5 fL (78.0-98.0); Mean Platelet Volume 8.7 fL (7.4-10.4); Platelet Count 175 thou/uL (130-400); RBC Distribution Width 13.5 % (11.5-14.5); Red Blood Cell (RBC) Count 4.38 mill/uL (4.70-6.10); White Blood Cell (WBC) Count 9.9 thou/uL (4.8-10.8)
[2020-03-06 04:40] LABS: Anion Gap 9 mmol/L (10-20); BUN (Urea Nitrogen) 13 mg/dL (8.4-25.7); Calc. Creatinine Clearance 80 mL/min (70-130); Calcium 8.3 mg/dL (7.8-10.44); Carbon Dioxide 24 mmol/L (23-31); Chloride 110 mmol/L (98-107); Estimated GFR-MDRD Greater than 90; Glucose 94 mg/dL (83-110); Potassium 3.8 mmol/L (3.5-5.1); Sodium 139 mmol/L (136-145)
[2020-03-06] MEDS: Dronedarone HCl 400 MG TAB PO SCH (08:28)
[2020-03-06] MEDS: Apixaban 5 MG TAB PO SCH (08:29)
--- NOTE | 2020-03-06 10:09 | PRG ---
DATE OF SERVICE: 03/06/2020 SUBJECTIVE: Mr. Guerrero is doing well. No complaints. He feels well. He is in normal sinus rhythm. OBJECTIVE: VITAL SIGNS: Blood pressure 114/60; pulse earlier, now it is 65. LUNGS: Clear. CARDIAC: Normal S1, normal S2. ASSESSMENT: Paroxysmal atrial fibrillation. PLAN: The patient will be released home on Multaq 400 mg twice a day and Eliquis 5 mg twice a day. He was given 3-day samples of Multaq and given a 7-day sample of Eliquis. He will follow up with Dr. Bateman. Job ID: [id number]
[2020-03-06 11:47] VITALS: TEMP 97.6
[2020-03-06] MEDS: Sodium Chloride 0.9% 1,000 ML IV SCH (11:49)
[2020-03-06 13:06] VITALS: BP 141/71
--- NOTE | 2020-03-06 16:23 | DIS ---
DATE OF ADMISSION: 03/05/2020 DATE OF DISCHARGE: 03/06/2020 DISCHARGE DISPOSITION AND FOLLOWUP: The patient discharged home. The patient was seen and examined on the day of discharge. Denies any new complaints. The patient to follow up with Dr. Bateman within 14 days and his PCP, Dr. Mark Rayo within a week. INPATIENT CONSULTS: Cardiology, Dr. Bateman and EP with Dr. Hodges. CLINICAL COURSE: The patient is a 74-year-old male with history of hypertension and atrial fibrillation, who presented as "not feeling well" in the past couple of days and with heart palpitations. The patient states that the palpitations were persistent and denied any chest pain, nausea, or vomiting. He had recently been admitted with atrial fibrillation and discharged on Coreg 3.125 mg b.i.d., which he had been taking consistently. He was also on an outpatient heart monitor, which he wore up until his ER arrival. In the ER, he was noted to have an elevated heart rate in the 130s and was given a Cardizem bolus and started on a Cardizem drip at 5 mg/hour, which seemed to improve his heart rate. While in the hospital, he continued on the Cardizem drip until the evening of 03/05/2020 where he converted to sinus rhythm and the Cardizem drip was discontinued. While here, the patient was started on Multaq and Eliquis and was cleared by Cardiology after he stayed in sinus rhythm on these medications overnight. FINAL DIAGNOSIS: Atrial fibrillation. DISCHARGE MEDICATIONS: 1. Eliquis 5 mg p.o. b.i.d. 2. Citrucel tablets 500 mg p.o. daily. 3. Vitamin D3 of 1000 units p.o. daily. 4. Curcumin 10 g p.o. daily. 5. Multaq 400 mg p.o. b.i.d. with meals. 6. Multivitamin with folic acid 1 tablet daily. DISCHARGE INSTRUCTIONS: The patient was instructed to take home medications as instructed and to follow up with Dr. Bateman within [address] Rayo this upcoming week. TIME SPENT: Total time coordinating the discharge of this patient was 35 minutes. Job ID: [id number] MTDD
== END 2020-03-06 13:23 | disposition home or self-care (01) | DRG 310 ==
LOC: ERS 02:39 → 2NO 04:17
PROVIDERS: ADMIT Hospitalist; ATTEND Hospitalist
DX: I48.0 Paroxysmal atrial fibrillation (principal); I10 Essential (primary) hypertension; Z98.890 Other specified postprocedural states; Z79.82 Long term (current) use of aspirin
CPT/HCPCS: 36415; 71045; 80048; 80053; 81001; 83605; 83735; 83880; 84484; 85025; 93005; J3490

== ENCOUNTER 2020-03-11 23:18 | Emergency (ER) | payer MEDICARE, BC ==
[2020-03-11 23:58] LABS: #Eosinphils 0.2 thou/uL (0.0-0.7); #Lymphocytes 1.7 thou/uL (1.20-3.40); #Monocytes 0.6 thou/uL (0.11-0.59); %Basophils 0.4 % (0.0-1.0); %Eosinophils 1.6 % (0.0-10.0); %Monocytes 5.7 % (0.0-10.0); %Neutrophils 76.3 % (42.0-75.0); Hemoglobin 16.2 g/dL (14.0-18.0); Mean Corpuscular HGB CONC 34.2 g/dL (32.0-36.0); Mean Corpuscular Hemoglobin 32.2 pg (27.0-31.0); Mean Corpuscular Volume 93.9 fL (78.0-98.0); Mean Platelet Volume 9.2 fL (7.4-10.4); Platelet Count 211 thou/uL (130-400); RBC Distribution Width 13.8 % (11.5-14.5); Red Blood Cell (RBC) Count 5.03 mill/uL (4.70-6.10); White Blood Cell (WBC) Count 10.4 thou/uL (4.8-10.8)
--- NOTE | 2020-03-12 00:05 | RAD ---
Chest AP view INDICATION: History of atrial fibrillation and erratic heart rate COMPARISON: March 05, 2020 single view chest radiograph FINDINGS: Lungs: The lungs are clear Cardiac silhouette: The cardiomediastinal silhouette appears within normal limits. Pulmonary vasculature: Normal Pleural spaces: No pleural effusion or pneumothorax is demonstrated. Upper abdomen: No abnormality seen. Osseous structures: No acute osseous abnormality. Additional findings: None. IMPRESSION: No acute cardiopulmonary abnormality.
[2020-03-12 00:18] LABS: ALT (SGPT) 21 U/L (8-55); AST (SGOT) 20 U/L (5-34); Alkaline Phosphatase 78 U/L (40-110); Anion Gap 14 mmol/L (10-20); BUN (Urea Nitrogen) 12 mg/dL (8.4-25.7); Bilirubin, Total 0.3 mg/dL (0.2-1.2); CK (CPK) 51 U/L (30-200); Calc. Creatinine Clearance 0 mL/min (70-130); Calcium 9.3 mg/dL (7.8-10.44); Carbon Dioxide 23 mmol/L (23-31); Chloride 107 mmol/L (98-107); Estimated GFR-MDRD 58; Globulin 3.3 g/dL (2.4-3.5); Glucose 162 mg/dL (83-110); Lipase 38 U/L (8-78); Potassium 4.2 mmol/L (3.5-5.1); Protein, Total 7.3 g/dL (5.8-8.1); Sodium 140 mmol/L (136-145)
--- NOTE | 2020-03-13 13:23 | EKG ---
Test Reason : Blood Pressure : / mmHG Vent. Rate : 107 BPM Atrial Rate : 111 BPM P-R Int : 000 ms QRS Dur : 078 ms QT Int : 330 ms P-R-T Axes : 000 041 -33 degrees QTc Int : 440 ms Atrial fibrillation with rapid ventricular response Anterior infarct , age undetermined Abnormal ECG Confirmed by KRIS TOMLIN ([id number]), scientific publications editor HUNTER MENESES ([id number]) on 03/13/2020 1:23:18 PM Referred By: Confirmed By:KRIS TOMLIN
== END 2020-03-12 01:15 | disposition home or self-care (01) ==
LOC: ERS 23:18
DX: I48.91 Unspecified atrial fibrillation (principal); Z79.899 Other long term (current) drug therapy
CPT/HCPCS: 71045; 80053; 82550; 83690; 84484; 85025; 93005; 96374

== ENCOUNTER 2020-04-08 06:13 | Outpatient (CLI) | payer MEDICARE, BC, OTHER ==
[2020-04-08 18:15] LABS: Hemoglobin 15.5 g/dL (14.0-18.0); Mean Corpuscular HGB CONC 34.4 g/dL (32.0-36.0); Mean Corpuscular Hemoglobin 32.1 pg (27.0-31.0); Mean Corpuscular Volume 93.5 fL (78.0-98.0); Platelet Count 189 thou/uL (130-400); RBC Distribution Width 13.5 % (11.5-14.5); Red Blood Cell (RBC) Count 4.84 mill/uL (4.70-6.10); White Blood Cell (WBC) Count 7.1 thou/uL (4.8-10.8)
[2020-04-08 18:22] LABS: Anion Gap 12 mmol/L (10-20); BUN (Urea Nitrogen) 11 mg/dL (8.4-25.7); Calc. Creatinine Clearance 0 mL/min (70-130); Calcium 8.9 mg/dL (7.8-10.44); Carbon Dioxide 28 mmol/L (23-31); Chloride 103 mmol/L (98-107); Estimated GFR-MDRD 75; Glucose 115 mg/dL (83-110); Potassium 3.9 mmol/L (3.5-5.1); Sodium 139 mmol/L (136-145)
[2020-04-08 19:53] LABS: PTT 40.9 sec (22.9-36.1)
[2020-04-08 19:54] LABS: INR-International Normal Ratio 1.2; Prothrombin Time 14.7 sec (12.0-14.7)
== END 2020-04-08 06:14 | disposition home or self-care (01) ==
LOC: LABBT 06:13
PROVIDERS: ATTEND Internal Medicine Cardiovascular Disease
DX: Z01.818 Encounter for other preprocedural examination (principal); Z11.59 Encounter for screening for other viral diseases; I48.91 Unspecified atrial fibrillation
CPT/HCPCS: 80048; 85027; 85610; 85730; U0003; 87635; 93005; 93010

== ENCOUNTER 2020-04-12 05:54 | Observation (INO) | payer MEDICARE, BC ==
[2020-04-07 12:01] VITALS: BMI 25.0
[2020-04-12] MEDS ORDERED: Heparin 10,000 UNITS/1 ML VIAL ONE ×2 (06:00→08:31)
[2020-04-12] MEDS ORDERED: Phenylephrine 10 MG/ML VIAL ONE (07:15)
[2020-04-12] MEDS ORDERED: Fentanyl 100 MCG/2 ML VIAL ONE (07:15)
[2020-04-12] MEDS ORDERED: Heparin 25,000 units/D5W 500 ML ONE (08:30)
[2020-04-12] MEDS ORDERED: Isoproterenol 0.2 MG/1 ML AMP ONE (10:52)
[2020-04-12] MEDS ORDERED: PROPOFOL 200 MG/20 ML VIAL ONE (11:00)
[2020-04-12] MEDS ORDERED: Rocuronium Bromide 10 MG/ML (10ML VIAL) ONE (11:00)
[2020-04-12] MEDS ORDERED: Dexamethasone 20 MG/5 ML VIAL ONE (11:00)
[2020-04-12] MEDS ORDERED: Ondansetron PF 4 MG/2 ML Vial ONE (11:00)
[2020-04-12] MEDS ORDERED: Protamine Sulfate 50 MG/5 ML VIAL ONE ×2 (11:18→11:30)
[2020-04-12] MEDS ORDERED: Ketorolac Tromethamine 30 MG/ML VIAL IVP PRN (13:45)
[2020-04-12] MEDS ORDERED: Acetaminophen/Codeine 30-300mg Tablet PO PRN ×2 (14:00)
[2020-04-12] MEDS ORDERED: Calcium Carbonate 500 MG ChewTAB PO PRN (14:06)
[2020-04-12] MEDS ORDERED: Cepastat Lozenges 1 LOZ PO PRN (14:07)
[2020-04-12] MEDS: Sucralfate 1 GM TAB PO SCH ×2 (17:39→23:47)
[2020-04-12] MEDS: Apixaban 5 MG TAB PO SCH (20:44)
[2020-04-13] MEDS: Sucralfate 1 GM TAB PO SCH (05:23)
[2020-04-13 07:40] VITALS: BP 122/58; TEMP 97.7
--- NOTE | 2020-04-13 08:05 | OP ---
DATE OF PROCEDURE: 04/12/2020 PROCEDURES PERFORMED: Electrophysiology study and radiofrequency ablation. REASON FOR PROCEDURE: Mr. Guerrero is a 74-year-old man with history of paroxysmal atrial fibrillation with recurrences, despite Multaq on chronic anticoagulation with Eliquis. He is here for pulmonary venous isolation procedure. DESCRIPTION OF PROCEDURE: The patient received general anesthesia by Anesthesia specialist. The left and right femoral venous areas were prepped, draped, and anesthetized using subcutaneous lidocaine and cannulated under ultrasound guidance x2. On the left side, an 11-Guatemalan sheath was used to advance an intracardiac echocardiogram probe, which was used to monitor the transseptal puncture, the pericardial space and the catheter manipulation throughout the procedure. Also on the left side, a Preface sheath was used to advance a duo-Deca catheter to the right atrium. Difficult to cannulation of the CS prompted changing it to a bidirectional Decapolar catheter. On the right side, two 8-Gu[place]alan sheath were introduced through which a ThermoCool SFST catheter was advanced to the right atrium. 3D map of the right atrium, His bundle, and CS and the isthmus was obtained. Following that, IV heparin was administered in bolus and drip fashion, which were adjusted throughout the procedure to keep ACT over 350. The two short sheaths on the right side exchanged to SL1 transseptal sheaths, which were used to perform a transseptal puncture under fluoroscopic and intracardiac echo monitoring with the help of powered [place] needle. Through the SL1 sheath, a ThermoCool SFST and a 20-pole Lasso catheter advanced into the left atrium. 3D map of the left atrium was obtained and then we proceeded to perform a standard pulmonary venous isolation procedure of both right and both left pulmonary veins. The posterior wall isolation was also performed with roof line and an inferior line throughout the posterior wall gonsalves. The esophagus was monitored to a temperature probe to avoid excessive heating. If any heating noted, the high-flow irrigation was performed at that spot. We were able to achieve 4 vein pulmonary venous isolation as well as back wall isolation. Isuprel was administered and then re-connections were re-ablated. The basic EP study was obtained with the following findings: Rhythm was sinus rhythm at baseline. IN 155, QRS 67, QT 401, AH 114, HV 44 milliseconds measured. AV Wenckebach cycle length was 330 milliseconds. AV sarai ERP was 600/300 milliseconds. No dual AV sarai physiology was present. Burst atrial pacing did not induce arrhythmias except for a short nonsustained atrial flutter. On Isuprel, no significant PAC burden was seen. The catheter was removed from the left side and the long sheaths were exchanged for short 8-Guatemalan sheath. The heparin was stopped and then reversed with protamine administration. Then, the short sheaths were removed and Vascade closure was performed under ultrasound guidance. A total of 85 lesions delivered at 32 minutes and 9 seconds at 40 palma. No change in the cardiac silhouette and no evidence of pericardial effusion at the end of the case on intracardiac echocardiogram images. CONCLUSION: 1. Successful 4 vein pulmonary venous isolation. 2. Posterior wall also isolated with roof and inferior lines. 3. No dual AV sarai physiology. 4.No inducible atrial arrhythmia at the end of the case. PLAN: Stop Multaq and diltiazem. Resume if recurrent atrial fibrillation or flutter is seen. Continue Eliquis anticoagulation. Job ID: [id number] [facility]
[2020-04-13] MEDS: Apixaban 5 MG TAB PO SCH (08:46)
[2020-04-13] MEDS ORDERED: Multivitamin W/ Minerals 1 TAB PO SCH (09:00)
[2020-04-13] MEDS ORDERED: CURCUMIN PO SCH (09:00)
[2020-04-13] MEDS ORDERED: Citrucel 500 MG TAB PO SCH (09:00)
--- NOTE | 2020-04-13 17:42 | EKG ---
Test Reason : Blood Pressure : / mmHG Vent. Rate : 061 BPM Atrial Rate : 061 BPM P-R Int : 146 ms QRS Dur : 094 ms QT Int : 448 ms P-R-T Axes : 026 053 073 degrees QTc Int : 450 ms Normal sinus rhythm Normal ECG When compared with ECG of 12-APR-2020 12:31, T wave inversion no longer evident in Lateral leads Confirmed by DR. Edwin REBOLLAR (3) on 04/13/2020 5:42:24 PM Referred By: [facility] Confirmed By:DR. Edwin REBOLLAR
--- NOTE | 2020-04-15 02:22 | DIS ---
DATE OF ADMISSION: 04/12/2020 DATE OF DISCHARGE: 04/13/2020 DIAGNOSIS: Atrial fibrillation. PROCEDURES PERFORMED: Include electrophysiology mapping and ablation for atrial fibrillation. HISTORY OF PRESENT ILLNESS: Mr. Guerrero is a 74-year-old gentleman with a history of persistent atrial fibrillation, refractory to Multaq. Chronically anticoagulated with Eliquis for his atrial arrhythmias. He was taken to the EP lab on 04/12/2020 for an elective outpatient electrophysiology study and ablation for atrial fibrillation. He underwent successful four vein pulmonary venous isolation as well as posterior wall isolation with roof and inferior lines placed. No dual AV sarai physiology was noted. He was not inducible for atrial arrhythmias at the end of the case. Total ablation time was 32 minutes. Recommendations, stop Multaq. Resume if recurrent atrial arrhythmias are seen. Continue Eliquis for anticoagulation at least 3 months postablation. SUBJECTIVE: Mr. Guerrero is feeling well. He had some mild chest discomfort with deep inspiration over the night. Otherwise, he is feeling well without any cardiac concerns or complaints. No bleeding at his leg sites. He has been up and ambulating throughout the carbajal and tolerating p.o. intake without difficulty. OBJECTIVE: VITAL SIGNS: Postablation vital signs are stable. He is afebrile. Heart rate has remained steady in 60 to 70 beats per minute. Respirations are even and unlabored. Oxygen is 99% on room air and blood pressure 122/58. GENERAL: He is alert and oriented. Speech is clear. Affect is appropriate. NEUROLOGIC: Grossly intact. HEART: Rate is irregularly irregular with crisp S1 and S2. PMI nondisplaced. LUNGS: Clear to auscultation bilaterally without wheezes, crackles, or rhonchi. Bilateral groin sites are stable without evidence of hematoma or bleeding complication. EXTREMITIES: Warm and dry to touch. Well perfused without clubbing, cyanosis, or edema. Gait is stable. DATABASE: Telemetry and EKG shows sinus rhythm. DISCHARGE MEDICATION LIST: Resuming home medications as previously taken. Discontinued medications, Multaq. New prescriptions provided include; 1. Carafate 1 g q.6 p.o. for two weeks. 2. Protonix 40 mg daily. 3. Lasix 40 mg p.o. p.r.n. edema to be taken with K-Dur 20 mEq. FOLLOWUP: Follow up in 6 weeks. DISCHARGE INSTRUCTIONS: No lifting more than 10 to 15 pounds until groin sites are healed. No driving for three days or until leg sites are healed. Continue Eliquis without interruption. Follow up in 6 weeks. Contact [facility] with any postablation concerns. CONDITION AT DISCHARGE: Stable. Job ID: [id number]
--- NOTE | 2020-04-16 14:48 | EKG ---
Test Reason : POST ABLATION Blood Pressure : / mmHG Vent. Rate : 060 BPM Atrial Rate : 060 BPM P-R Int : 150 ms QRS Dur : 092 ms QT Int : 470 ms P-R-T Axes : 025 047 102 degrees QTc Int : 470 ms Normal sinus rhythm with sinus arrhythmia Prolonged QT Abnormal ECG When compared with ECG of 08-APR-2020 16:20, Sinus rhythm has replaced Ectopic atrial rhythm T wave inversion now evident in Lateral leads Confirmed by DR. Edwin REBOLLAR (3) on 04/12/2020 2:20:42 PM Referred By: [facility] Confirmed By:DR. Edwin REBOLLAR
== END 2020-04-13 10:15 | disposition home or self-care (01) ==
LOC: CCL 05:54 → 2NO 12:47
PROVIDERS: ADMIT Internal Medicine Cardiovascular Disease; ATTEND Internal Medicine Cardiovascular Disease
PROC: 02583ZZ Destruction of Conduction Mechanism, Percutaneous Approach (ICD-10-PCS; principal; 2020-04-12)
PROC: 02K83ZZ Map Conduction Mechanism, Percutaneous Approach (ICD-10-PCS; 2020-04-12)
PROC: 4A023FZ Measurement of Cardiac Rhythm, Percutaneous Approach (ICD-10-PCS; 2020-04-12)
PROC: 4A0234Z Measurement of Cardiac Electrical Activity, Percutaneous Approach (ICD-10-PCS; 2020-04-12)
DX: I48.0 Paroxysmal atrial fibrillation (principal); I10 Essential (primary) hypertension; Z79.01 Long term (current) use of anticoagulants; Z79.899 Other long term (current) drug therapy
CPT/HCPCS: 76942; 85347 ×2; 93005 ×2; 93613; 93623; 93656; 93662; C1732 ×3; C1759; C1884; G0378 ×2; 93010; J1100; J1644; J2370; J2405; J2704; J2720; J3010

== ENCOUNTER 2020-07-06 13:44 | Emergency (ER) | payer MEDICARE, BC, OTHER ==
[2020-07-06 14:27] LABS: #Eosinphils 0.1 thou/uL (0.0-0.7); #Lymphocytes 1.3 thou/uL (1.20-3.40); #Monocytes 0.5 thou/uL (0.11-0.59); #Neutrophils 6.1 thou/uL (1.40-6.50); %Basophils 0.5 % (0.0-1.0); %Lymphocytes 16.5 % (21.0-51.0); %Monocytes 6.6 % (0.0-10.0); %Neutrophils 75.4 % (42.0-75.0); Hemoglobin 14.9 g/dL (14.0-18.0); Mean Corpuscular HGB CONC 34.5 g/dL (32.0-36.0); Mean Corpuscular Hemoglobin 31.6 pg (27.0-31.0); Mean Corpuscular Volume 91.5 fL (78.0-98.0); Mean Platelet Volume 8.4 fL (7.4-10.4); Platelet Count 217 thou/uL (130-400); RBC Distribution Width 13.4 % (11.5-14.5); Red Blood Cell (RBC) Count 4.72 mill/uL (4.70-6.10); White Blood Cell (WBC) Count 8.1 thou/uL (4.8-10.8)
[2020-07-06 15:24] LABS: Anion Gap 12 mmol/L (10-20); BUN (Urea Nitrogen) 10 mg/dL (8.4-25.7); Calc. Creatinine Clearance 0 mL/min (70-130); Carbon Dioxide 24 mmol/L (23-31); Chloride 106 mmol/L (98-107); Estimated GFR-MDRD 90; Potassium 4.3 mmol/L (3.5-5.1); Sodium 138 mmol/L (136-145)
[2020-07-06 15:25] LABS: ALT (SGPT) 12 U/L (8-55); AST (SGOT) 18 U/L (5-34); Albumin 3.9 g/dL (3.4-4.8); Alkaline Phosphatase 65 U/L (40-110); Bilirubin, Total 0.6 mg/dL (0.2-1.2); Calcium 9.2 mg/dL (7.8-10.44); Glucose 93 mg/dL (83-110); Protein, Total 6.9 g/dL (5.8-8.1)
[2020-07-06] MEDS ORDERED: Acetaminophen 500 MG TAB ONE (15:27)
[2020-07-06] MEDS ORDERED: Nitroglycerin 0.4 MG TAB 1 EACH ONE (15:27)
--- NOTE | 2020-07-06 16:10 | RAD ---
PORTABLE CHEST ONE VIEW: 07/06/20 at 3:44 p.m. HISTORY: Chest pain. COMPARISON: 03/11/20. FINDINGS: The heart size is normal. The lungs are well expanded without lobar consolidation, pneumothoraces, or pleural effusions. IMPRESSION: No radiographic evidence of acute cardiopulmonary process. POS: OFF
[2020-07-07 14:04] LABS: SARS-CoV-2 MS2 Positive; SARS-CoV-2 N Gene Negative; SARS-CoV-2 S Gene Negative; SARS-CoV-2 by NAA Not Detected (NotDetected); SARS-CoV-2 orf1ab Negative
== END 2020-07-06 16:17 | disposition home or self-care (01) ==
LOC: ERS 13:44
DX: R07.89 Other chest pain (principal); R53.81 Other malaise; R53.83 Other fatigue; Z20.828 Contact with and (suspected) exposure to other viral communicable diseases; I48.91 Unspecified atrial fibrillation; Z79.899 Other long term (current) drug therapy
CPT/HCPCS: 71045; 80053; 82550; 83880; 84484; 85025; U0003; 87635

== ENCOUNTER 2021-03-10 11:54 | Outpatient (CLI) | payer MEDICARE, BC ==
[2021-03-10 13:46] LABS: ALT (SGPT) 14 U/L (8-55); AST (SGOT) 15 U/L (5-34); Albumin 3.9 g/dL (3.4-4.8); Alkaline Phosphatase 66 U/L (40-110); Anion Gap 12 mmol/L (10-20); BUN (Urea Nitrogen) 9 mg/dL (8.4-25.7); Bilirubin, Total 0.4 mg/dL (0.2-1.2); Calc. Creatinine Clearance 0 mL/min (70-130); Calcium 9.1 mg/dL (7.8-10.44); Carbon Dioxide 25 mmol/L (23-31); Chloride 106 mmol/L (98-107); Globulin 2.7 g/dL (2.4-3.5); Glucose 120 mg/dL (83-110); Potassium 4.3 mmol/L (3.5-5.1); Protein, Total 6.6 g/dL (5.8-8.1); Sodium 139 mmol/L (136-145)
[2021-03-10 14:18] LABS: #Eosinphils 0.1 10x3/uL (0.0-0.5); #Monocytes 0.5 10x3/uL (0.0-1.1); #Neutrophils 5.7 10x3/uL (1.5-8.4); %Basophils 0.5 % (0.0-2.0); %Lymphocytes 16.8 % (18.0-47.0); %Monocytes 6.9 % (0.0-10.0); %Neutrophils 74.1 % (40.0-75.0); Hemoglobin 14.6 g/dL (13.5-17.5); Mean Corpuscular HGB CONC 34.4 g/dL (32.0-36.0); Mean Corpuscular Hemoglobin 29.9 pg (27.0-33.0); Mean Corpuscular Volume 86.7 fl (81.2-95.1); Mean Platelet Volume 10.6 fl (7.4-10.4); Platelet Count 217 10x3/uL (150-450); RBC Distribution Width 14.3 % (11.5-14.5); Red Blood Cell (RBC) Count 4.89 10x6/uL (4.32-5.72); White Blood Cell (WBC) Count 7.7 10x3/uL (3.5-10.5)
[2021-03-10 22:03] LABS: SARS-CoV-2 PCR by NAA Not Detected (NotDetected)
== END 2021-03-10 11:55 | disposition home or self-care (01) ==
LOC: LABBT 11:54
PROVIDERS: ATTEND Internal Medicine Cardiovascular Disease
DX: Z01.818 Encounter for other preprocedural examination (principal); Z20.822 Contact with and (suspected) exposure to COVID-19
CPT/HCPCS: 71046; 80053; 85025; 93005; U0003; U0005; 87635; 93010

== ENCOUNTER 2021-03-15 05:41 | Day surgery (SDC) | payer MEDICARE, BC ==
[2021-03-14 10:18] VITALS: BMI 25.0
[2021-03-15] MEDS ORDERED: Lidocaine 1% (PF) 30 ML VIAL ONE (06:35)
[2021-03-15] MEDS ORDERED: Heparin 10,000 UNITS/ 10 ML VIAL ONE (07:04)
[2021-03-15] MEDS ORDERED: Nitroglycerin 100MG/250ML BOT 250 ML ONE (07:04)
[2021-03-15] MEDS ORDERED: Verapamil 5 MG/2 ML VIAL ONE (07:04)
[2021-03-15] MEDS ORDERED: Iopamidol 370 76% 100 ML VIAL ONE (10:45)
== END 2021-03-15 11:20 | disposition home or self-care (01) ==
LOC: CCL 05:41
PROVIDERS: ATTEND Internal Medicine Cardiovascular Disease
PROC: 4A023N7 Measurement of Cardiac Sampling and Pressure, Left Heart, Percutaneous Approach (ICD-10-PCS; principal; 2021-03-15)
PROC: B2111ZZ Fluoroscopy of Multiple Coronary Arteries using Low Osmolar Contrast (ICD-10-PCS; 2021-03-15)
DX: I25.10 Atherosclerotic heart disease of native coronary artery without angina pectoris (principal); I10 Essential (primary) hypertension; I48.0 Paroxysmal atrial fibrillation; I48.4 Atypical atrial flutter; Z79.82 Long term (current) use of aspirin; Z79.899 Other long term (current) drug therapy
CPT/HCPCS: 93458; J1644; J2001; Q9967

== ENCOUNTER 2023-06-05 13:57 | Outpatient (CLI) | payer MEDICARE, BC | END 2023-06-05 13:58 | disposition home or self-care (01) | LOC: SCSMRI 13:57 | PROVIDERS: ATTEND Surgery | DX: M47.26 Other spondylosis with radiculopathy, lumbar region (principal); M51.16 Intervertebral disc disorders with radiculopathy, lumbar region; M47.817 Spondylosis without myelopathy or radiculopathy, lumbosacral region; M48.061 Spinal stenosis, lumbar region without neurogenic claudication; M48.07 Spinal stenosis, lumbosacral region | CPT/HCPCS: 72110; 72148 ==